=== PATIENT | male | born 1960 | race Caucasian/White ===

== ENCOUNTER 2018-06-30 19:10 | Emergency (ER) | payer OTHER ==
[~2018-06-30] VITALS: Ht 190.5 cm; Wt 83.2 kg
--- OUTSIDE RECORDS SUMMARY | ~2018-06-30 | XMS | Clinical Summary ---
Demographics + + + | Address | [address] | | | [place] [address] | + + + | Home Phone | | + + + | Preferred Language | Unknown | + + + | Marital Status | | + + + | Oriental Orthodox Affiliation | 1041 | + + + | Race | Unknown | + + + | Ethnic Group | Unknown | + + + Author + + + | Author | [facility] | | | and [place] | + + + | Organization | [facility] | | | and [place] | [...] Team Providers + +------+ + | Care Executive Account Manager Name | Role | Phone | + [...] + +------+ | MODA | MODA | [id number] | | [phone] | [address] | [address] | | | [place] | | [phone] | | | | [place] | | esent | | [place], | | | | [place] | | | | [place] [address] | | +-------+--------+ +--------+ + +------+ + [...] | | al/Fam | | 1961 | [phone] | [place] [address] | | | helga | | | 3 (Home) | | + +--------+ +--------+ + + Advance Directives Patient has advance care planning documents on file. For more information, please contact:[facility] [address]
--- OUTSIDE RECORDS SUMMARY | ~2018-06-30 | XMS | Clinical Summary ---
Demographics + + + | Address | [address] | | | [place] [address] | + + + | Home Phone | | + + + | Preferred Language | Unknown | + + + | Marital Status | | + + + | Yazidism Affiliation | 1041 | + + + | Race | Unknown | + + + | Ethnic Group | Unknown | + + + Author + + + | Author | [facility] | | | and [place] | + + + | Organization | [facility] [place] | | | and [place] [...] Team Providers + +------+ + | Care Lurer Name | Role | Phone | + [...] + +------+ | MODA | MODA | [id number] | | [phone] | [address] | [address] | | | [place] | | [phone] | | | | [place] | | esent | | [place], | | | | [place] | | | | [place] [address] | | +-------+--------+ +--------+ + +------+ + [...] | | al/Fam | | 1961 | [phone] | [place] [address] | | | helga | | | 3 (Home) | | + +--------+ +--------+ + + Advance Directives Patient has advance care planning documents on file. For more information, please contact:[facility] [place] [address]
[~2018-06-30 19:10] MED LIST: ALEVE220 M1 PO; DIAZEPAM5 MG PO; FLEXERIL10 MG PO; NORCO 5-325 TA1 EACH PO; ULTRAM50 MG PO
== END 2018-06-30 20:39 | disposition home or self-care (01) ==
LOC: ED 19:10
DX: T18.128A Food in esophagus causing other injury, initial encounter (principal)
CPT/HCPCS: 96374; 99283-25; J1610

== ENCOUNTER → 2018-07-18 | Emergency (ER) | payer OTHER ==
[~2018-07-18] VITALS: Ht 190.5 cm; Wt 83.2 kg
--- OUTSIDE RECORDS SUMMARY | ~2018-07-18 | XMS | Clinical Summary ---
Demographics + + + | Address | [address] | | | [place] [address] | + + + | Home Phone | | + + + | Preferred Language | Unknown | + + + | Marital Status | | + + + | Muslim Affiliation | 1041 | + + + | Race | Unknown | + + + | Ethnic Group | Unknown | + + + Author + + + | Author | [facility] | | | and [place] | + + + | Organization | [facility] | | | and [place] | + + + | Address | Unknown | + + + | Phone | Unavailable | + + + Support + + +---------+ + | Name | Relationship | Address | Phone | + + +---------+ + | LIZA DEL CID | ECON | Unknown | | + + +---------+ + Care Team Providers + +------+ + | Care Mosaic Layer Name | Role | Phone | + +------+ + | Sy Heaton MD | PP | | + +------+ + Allergies No Known Allergies Medications + + + +---------+------+------+-------+ | Medication | Sig | Dispensed | Refills | Star | End | Statu | | | | | | t | Date | s | | | | | | Date | | | + + + +---------+------+------+-------+ | | One tablet twice | 20 | 0 | 12/1 | | Activ | | amoxicillin-clavulan | daily for 10 days | tablet | | 05/10 | | e | | ate (AUGMENTIN) | | | | 17 | | | | 875-125 mg per | | | | | | | | tabletIndications: | | | | | | | | Acute bacterial | | | | | | | | sinusitis | | | | | | | + + + +---------+------+------+-------+ Active Problems No known active problems Social History + +-------+ +--------+------+ | Tobacco Use | Types | Packs/Day | Years | Date | | | | | Used | | + +-------+ +--------+------+ | Never Smoker | | | | | + +-------+ +--------+------+ + +---+---+---+ | Smokeless Tobacco: | | | | | Never Used | | | | + +---+---+---+ + + + | Sex Assigned at | Date Recorded | | | | + + + | Not on file | | + + + + + + + | Job Start Date | Occupation | Industry | + + + + | Not on file | Not on file | Not on file | + + + + + + + + | Travel History | Travel Start | Travel End | + + + + + + | No recent travel history available. | + + Last Filed Vital Signs + + + + | Vital Sign | Reading | Time Taken | + + + + | Blood Pressure | 115/68 | 02/02/20171252 PST | + + + + | Pulse | 70 | 02/02/20171252 PST | + + + + | Temperature | 36.8 C (98.2 F) | 02/02/20171252 PST | + + + + | Respiratory Rate | 16 | 02/02/20171252 PST | + + + + | Oxygen Saturation | 98% | 02/02/20171252 PST | + + + + | Inhaled Oxygen | - | - | | Concentration | | | + + + + | Weight | 81.5 kg (179 lb 10.8 | 02/02/20171252 PST | | | oz) | | + + + + | Height | 190.5 cm (6' 3") | 02/02/20171252 PST | + + + + | Body Mass Index | 22.46 | 02/02/20171252 PST | + + + + Plan of Treatment + + + + + | Health Maintenance | Due Date | Last Done | Comments | + + + + + | Hepatitis C | | | | | Screening | 3 | | | + + + + + | Vaccine: | | | | | Dtap/Tdap/Td (1 - | 2 | | | | Tdap) | | | | + + + + + | Colorectal Cancer | | | | | Screening | 3 | | | | (Colonoscopy) | | | | + + + + + | Vaccine: Zoster (1 | | | | | of 2) | 3 | | | + + + + + | Vaccine: Influenza | | 03/06/2013 | | | (Season Ended) | 9 | | | + + + + + Results Not on filefrom Last 3 Months Insurance +-------+--------+ +--------+ + +------+ | Payer | Benefi | Subscriber | Effect | Phone | Address | Type | | | t Plan | ID | tamara | | | | | | / | | Dates | | | | | | Group | | | | | | +-------+--------+ +--------+ + +------+ | MODA | MODA | [id number] | | [phone] | [address] | PPO | | | [place] | | [phone] | | | | [place] | | esent | | [place], | | | | [place] | | | | [place] [address] | | +-------+--------+ +--------+ + +------+ + +--------+ +--------+ + + | Guarantor Name | Accoun | Relation to | Date | Phone | Billing Address | | | t Type | Patient | of | | | | | | | | | | + +--------+ +--------+ + + | Ming Del Cid | Person | Self | [birth year] | [address] | | | al/Fam | | 1961 | [phone] | [place] [address] | | | helga | | | 3 (Home) | | + +--------+ +--------+ + + Advance Directives Patient has advance care planning documents on file. For more information, please contact:[facility] [place] [address]
--- OUTSIDE RECORDS SUMMARY | ~2018-07-18 | XMS | Clinical Summary ---
Demographics + + + | Address | [address] | | | [place] [address] | + + + | Home Phone | | + + + | Preferred Language | Unknown | + + + | Marital Status | | + + + | Muslim Affiliation | 1041 | + + + | Race | Unknown | + + + | Ethnic Group | Unknown | + + + Author + + + | Author | [facility] | | | and [place] | + + + | Organization | [facility] | | | and [place] [...] Team Providers + +------+ + | Care Seam Feller Name | Role | Phone | + [...] + +------+ | MODA | MODA | [id number] | | [phone] | [address] | PPO | | | [place] | | [phone] | | | | [place] | | esent | | [place], | | | | [place] | | | | [place] [address] | | +-------+--------+ +--------+ + +------+ + [...] | | al/Fam | | 1961 | [phone] | [place] [address] | | | helga | | | 3 (Home) | | + +--------+ +--------+ + + Advance Directives Patient has advance care planning documents on file. For more information, please contact:[facility] [place] [address]
--- OUTSIDE RECORDS SUMMARY | 2018-07-18 20:14 | XMS ---
PreManage Notification: EMILY SORIA Security Support Services Specialist Events No recent Security Events currently on file CRITERIA MET - [facility] - 2 Visits in 30 Days CARE PROVIDERS There are no care providers on record at this time. Hema has no Care Guidelines for this patient. Marcelle VISIT COUNT (12 MO.) [facility] TOTAL 2 NOTE: Visits indicate total known visits. ED/C VISIT TRACKING (12 MO.) 07/18/2018 20:11 [facility] TYPE: Emergency COMPLAINT: - THROAT PAIN 06/30/2018 19:11 [facility] [place] TYPE: Emergency COMPLAINT: - CHOKING DIAGNOSES: - Food in esophagus causing other injury, initial encounter INPATIENT VISIT TRACKING (12 MO.) No inpatient visits to display in this time frame [id number]
== END ==
LOC: ED 20:11
DX: T18.128A Food in esophagus causing other injury, initial encounter (principal); K22.2 Esophageal obstruction
CPT/HCPCS: 99283